=== PATIENT | male | born 1955 | race Caucasian/White ===

== ENCOUNTER 2025-05-02 09:04 | Outpatient (CLI) | payer MEDICARE ==
[2025-05-02 10:02] LABS: Estimated GFR - POC 73.0
[2025-05-02] MEDS ORDERED: Iopamidol 300 61% 100 ML VIAL FS ONE (10:47)
== END 2025-05-02 09:05 | disposition home or self-care (01) ==
LOC: CSHCT 09:04
PROVIDERS: ATTEND Internal Medicine Hematology & Oncology
DX: C91.10 Chronic lymphocytic leukemia of B-cell type not having achieved remission (principal); J16.8 Pneumonia due to other specified infectious organisms; D80.1 Nonfamilial hypogammaglobulinemia; R16.1 Splenomegaly, not elsewhere classified; D73.9 Disease of spleen, unspecified
CPT/HCPCS: 74177; 80053; 82565; 83615; 84550; Q9967